=== PATIENT | male | born 1955 | race African-American/Black ===

== ENCOUNTER 2022-05-15 10:22 | Emergency (ER) | payer MEDICAID ==
[~2022-05-15] VITALS: Ht 188 cm; Wt 106.5 kg
[2022-05-15 10:57] VITALS: BP 92/57
[2022-05-15 12:06] LABS: Basophils # (auto) 0 10 ^3/uL (0-0.2); Basophils % (auto) 0.3 % (0.0-2.0); Eosinophils # (auto) 0.1 10 ^3/uL (0-0.8); Eosinophils % (auto) 1.1 % (0.0-7.0); Hematocrit 44.8 % (41.0-53.0); Hemoglobin 14.8 g/dL (13.5-17.5); Lymphocytes # (auto) 1.4 10 ^3/uL (0.4-5.4); Lymphocytes % (auto) 27.9 % (10.0-50.0); Mean Corpuscular Hemoglobin 32.3 pg (28.0-32.0); Mean Corpuscular Hgb Conc. 33.1 g/dL (32.0-36.0); Mean Corpuscular Volume 97.5 fL (80.0-100.0); Monocytes # (auto) 0.5 10 ^3/uL (0-1.3); Monocytes % (auto) 9.2 % (0.0-12.0); Neutrophils # (auto) 3.1 10 ^3/uL (1.6-8.6); Neutrophils % (auto) 61.5 % (37.0-80.0); Nucleated Red Blood Cells % 0.1 %; Red Cell Distribution Width 14.1 % (11.8-14.3); White Blood Cell 5.1 10^3/uL (4.4-10.8)
[2022-05-15 12:19] LABS: Albumin 3.4 g/dL (3.4-5.0); Calcium 8.6 mg/dL (8.5-10.1); Potassium 3.5 mmol/L (3.5-5.1)
[2022-05-15 12:22] LABS: Bilirubin, Total 1.1 mg/dL (0.2-1.0); Total Protein 6.8 g/dL (6.4-8.2)
[2022-05-15] MEDS ORDERED: METH4PAK PO (13:51)
[2022-05-15] MEDS ORDERED: AZIT1POW PO (13:51)
== END 2022-05-15 15:21 | disposition home or self-care (01) ==
LOC: ER 10:26
DX: J20.9 Acute bronchitis, unspecified (principal); E78.5 Hyperlipidemia, unspecified; Z20.822 Contact with and (suspected) exposure to COVID-19
CPT/HCPCS: 36415; 71045; 80053; 83880; 84484; 85025; 93005

== ENCOUNTER → 2024-07-15 | Outpatient (CLI) | payer MEDICAID ==
[~2024-07-15] MED LIST: AZIT1POW PO; METH4PAK PO
[2024-07-15 10:08] LABS: Basophils # (auto) 0 10 ^3/uL (0-0.2); Eosinophils # (auto) 0.1 10 ^3/uL (0-0.8); Hemoglobin 15.2 g/dL (13.5-17.5); Mean Corpuscular Volume 99.4 fL (80.0-100.0); Monocytes # (auto) 0.4 10 ^3/uL (0-1.3); White Blood Cell 5.1 10^3/uL (4.4-10.8)
[2024-07-15 10:10] LABS: Basophils % (auto) 0.7 % (0.0-2.0); Eosinophils % (auto) 2.6 % (0.0-7.0); Lymphocytes # (auto) 1.6 10 ^3/uL (0.4-5.4); Lymphocytes % (auto) 30.8 % (10.0-50.0); Mean Corpuscular Hemoglobin 34.3 pg (28.0-32.0); Mean Corpuscular Hgb Conc. 34.5 g/dL (32.0-36.0); Monocytes % (auto) 8.3 % (0.0-12.0); Neutrophils % (auto) 57.6 % (37.0-80.0); Nucleated Red Blood Cells % 0.1 %; Platelet Count (auto) 145 10^3/uL (140-450); Red Blood Cells 4.43 10^6/uL (4.5-5.90); Red Cell Distribution Width 14.8 % (11.8-14.3)
[2024-07-15 10:59] LABS: Alanine Aminotransferase 13 U/L (7-40); Alkaline Phosphatase 58 U/L (46-116); Anion Gap 4 (5-15); Aspartate Aminotransferase 11 U/L (13-40); BUN/Creatinine Ratio 14.1 (10.0-20.0); Blood Urea Nitrogen 11 mg/dL (9-23); Calcium 9.5 mg/dL (8.7-10.4); Carbon Dioxide 27 mmol/L (20-30); Chloride 111 mmol/L (98-107); Cholesterol 146 mg/dL (< 200); Glucose 86 mg/dL (74-106); HDL Cholesterol 50 mg/dL (40-59); LDL Cholesterol 80 mg/dL (< 100); Potassium 4.4 mmol/L (3.5-5.1); Sodium 142 mmol/L (136-145); Triglycerides 71 mg/dL (< 150)
[2024-07-15 11:00] LABS: Total Protein 6.2 g/dL (5.7-8.2)
== END | disposition home or self-care (01) ==
LOC: LAB 09:44
PROVIDERS: ATTEND Nurse Practitioner Family
DX: I27.20 Pulmonary hypertension, unspecified (principal); N40.0 Benign prostatic hyperplasia without lower urinary tract symptoms; R73.9 Hyperglycemia, unspecified
CPT/HCPCS: 36415; 80053; 80061; 82043; 83036; 84153; 84443; 85025

== ENCOUNTER → 2024-09-05 | Outpatient (CLI) | payer MEDICAID ==
[2024-09-05 10:55] LABS: Basophils # (auto) 0 10 ^3/uL (0-0.2); Basophils % (auto) 0.5 % (0.0-2.0); Eosinophils # (auto) 0.1 10 ^3/uL (0-0.8); Hematocrit 46.2 % (41.0-53.0); Monocytes # (auto) 0.4 10 ^3/uL (0-1.3); Red Blood Cells 4.62 10^6/uL (4.5-5.90)
[2024-09-05 10:57] LABS: Eosinophils % (auto) 1.8 % (0.0-7.0); Hemoglobin 15.8 g/dL (13.5-17.5); Lymphocytes # (auto) 1.4 10 ^3/uL (0.4-5.4); Lymphocytes % (auto) 28.8 % (10.0-50.0); Mean Corpuscular Hemoglobin 34.3 pg (28.0-32.0); Mean Corpuscular Hgb Conc. 34.3 g/dL (32.0-36.0); Mean Corpuscular Volume 99.9 fL (80.0-100.0); Monocytes % (auto) 8.4 % (0.0-12.0); Neutrophils % (auto) 60.5 % (37.0-80.0); Nucleated Red Blood Cells % 0.1 %; Platelet Count (auto) 143 10^3/uL (140-450); Red Cell Distribution Width 14.3 % (11.8-14.3)
[2024-09-05 11:21] LABS: Albumin 4.2 g/dL (3.2-4.8); Bilirubin, Direct 0.3 mg/dL (<0.3); Total Protein 6.8 g/dL (5.7-8.2)
[2024-09-06 08:06] LABS: Rheumatoid Arthritis Factor <10.0 IU/mL (<14.0)
[2024-09-06 10:07] LABS: Anti-Nuclear Antibody Direct Negative (Negative)
== END | disposition home or self-care (01) ==
LOC: LAB 10:22
PROVIDERS: ATTEND Internal Medicine
DX: I27.20 Pulmonary hypertension, unspecified (principal); R73.03 Prediabetes; R55 Syncope and collapse
CPT/HCPCS: 36415; 80061; 80076; 83036; 84439; 84443; 85025; 86038; 86431; 86703

== ENCOUNTER 2024-10-19 08:33 | Emergency (ER) | payer MEDICAID ==
[~2024-10-19] VITALS: Ht 188 cm; Wt 103.0 kg
--- NOTE | 2024-10-19 09:14 | ED.PDOC ---
General HPI Comments 69 Y M with PMHX PH and HLD, presents to the ED with CC of blood in urine. Patient states, that he has been experiencing intermittent hematuria x2days with associated symptoms of back pain. Patient relays, that he currently takes oxybutynin for enlarged prostate and denies any painful urination. Patient smokes tobacco, drinks occasionally, and smokes marijuana. Patient denies fever, cough, congestion, abdominal pain, or N/V/D. Chief Complaint: Urinary Time Seen by MD: 08:55 Reviewed notes: Nurses Notes, Medications Allergies: Coded Allergies: NO KNOWN ALLERGIES (Unverified , 05/15/22) Home Meds Active Scripts Methylprednisolone (Medrol Dosepak) 4 Mg Steven, 4 MG PO UD, #21 TAB UAD Prov:MARU GUERRERO MD 05/15/22 Azithromycin (Zithromax) 1 Gm Pow, 1 PACK PO ONCE, #1 PACK Prov:MARU GUERRERO MD 05/15/22 Information Source: Patient, Relative, Significant Other Mode of Arrival: Ambulatory Severity: Mild Timing: Days Duration: Since onset Prehospital treatment: None Symptoms: Hematuria History of: None Location: None Penile discharge: None Modifying factors: None associated signs and symptoms: None Past Medical History PAST MEDICAL HISTORY: High Lipids Family History Family History: Family hx of DM, Family hx of Cancer, Family hx of HTN Social History Smoker: Non-Smoker Alcohol: Denies ETOH Use Drugs: Denies Drug Use Lives In: Home Constitutional: denies: chills, diaphoresis, fatigue, fever, malaise, sweats, weakness, others EENTM: denies: blurred vision, double vision, ear bleeding, ear discharge, ear drainage, ear pain, ear ringing, eye pain, eye redness, hearing loss, mouth pain, mouth swelling, nasal discharge, nose bleeding, nose congestion, nose pain, photophobia, tearing, throat pain, throat swelling, voice changes, others Respiratory: denies: cough, hemoptysis, orthopnea, SOB at rest, shortness of breath, SOB with excertion, stridor, wheezing, others Cardiovascular: denies: chest pain, dizzy spells, diaphoresis, Dyspnea on exertion, edema, irregular heart beat, left arm pain, lightheadedness, palpitations, PND, syncope, others Gastrointestinal: denies: abdomen distended, abdominal pain, blood streaked bowels, constipated, diarrhea, dysphagia, difficulty swallowing, hematemesis, melena, nausea, poor appetite, poor fluid intake, rectal bleeding, rectal pain, vomiting, others Genitourinary: reports: hematuria; denies: burning, dysuria, flank pain, frequency, incontinence, penile discharge, penile sore, pain, testicle pain, testicle swelling, urgency, others Neurological: denies: dizziness, fainting, headache, left sided numbness, left sided weakness, numbness, paresthesia, pre-existing deficit, right sided numbness, right sided weakness, seizure, speech problems, tingling, tremors, weakness, others Musculoskeletal: reports: back pain; denies: gout, joint pain, joint swelling, muscle pain, muscle stiffness, neck pain, others Integumetry: denies: bruises, change in color, change in hair/nails, dryness, laceration, lesions, lumps, rash, wounds, others Allergic/Immunocompromised: denies: Difficulty Healing, Frequent Infections, Hives, Itching, others Hematologic/Lymphatic: reports: blood clots; denies: anemia, easy bleeding, ea sy bruising, swollen glands, others Endocrine: denies: excessive hunger, excessive sweating, excessive thirst, excessive urination, flushing, intolerance to cold, intolerance to heat, unexplained weight gain, unexplained weight loss, others Psychiatric: denies: anxiety, bipolar disorder, depression, hopeless, panic disorder, schizophrenia, sleepless, suicidal, others All Other Systems: Reviewed and Negative Physical Exam General Appearance: Moderate Distress, Normal HEENT: Normal ENT Inspection, Pharynx Normal, TMs Normal Neck: Full Range of Motion, Non-Tender, Normal, Normal Inspection Respiratory: Chest Non-Tender, Lungs Clear, No Accessory Muscle Use, No Respiratory Distress, Normal Breath Sounds Cardiovascular: No Edema, No JVD, No Murmur, No Gallop, Normal Peripheral Pulses, Regular Rate/Rhythm Breast Exam: Deferred Gastrointestinal: No Organomegaly, Non Tender, No Pulsatile Mass, Normal Bowel Sounds, Soft Genitalia: Deferred Pelvic: Deferred Rectal: Deferred Extremities: No calf tenderness, Normal capillary refill, Normal inspection, Normal range of motion, Non-tender, No pedal edema Musculoskeletal : Apperance: Normal Neurologic: Alert, spar cap beveler II-XII nml as Tested, No Motor Deficits, Normal Affect, Normal Mood, No Sensory Deficits Cerebellar Function: Normal Reflexes: Normal Skin: Dry, Normal Color, Warm Peripheral Pulses: 3+ Radial (R), 3+ Radial (L) Lymphatic: No Adenopathy Was a procedure done? Was a procedure done?: No Differential Diagnosis Kidney stone (Female): Musculoskeletal pain, Urinary obstruction, Urolithiasis Kidney stone (Male): Urinary obstruction, Urolithiasis, Urinary tract infection Penile/Scrotal: STD, UTI X-Ray, Labs, Meds, VS Vital Signs Date Time Temp Pulse Resp B/P (MAP) Pulse Ox O2 Delivery O2 Flow Rate FiO2 10/19/24 11:36 97.8 64 16 102/63 (76) 95 97.8 10/19/24 09:02 100.0 81 20 99/62 (74) 95 100.0 10/19/24 09:02 81 20 95 Room Air 10/19/24 08:48 100.0 81 20 99/62 (74) 95 Lab Test 10/19/24 09:24 10/19/24 08:40 Range/Units White Blood Count 6.1 4.4-10.8 10^3/uL Red Blood Count 4.77 4.5-5.90 10^6/uL Hemoglobin 15.9 13.5-17.5 g/dL Hematocrit 47.5 41.0-53.0 % Mean Corpuscular Volume 99.4 80.0-100.0 fL Mean Corpuscular Hemoglobin 33.4 H 28.0-32.0 pg Mean Corpuscular Hemoglobin Concent 33.6 32.0-36.0 g/dL Red Cell Distribution Width 14.3 11.8-14.3 % Platelet Count 137 L 140-450 10^3/uL Mean Platelet Volume 9.5 6.9-10.8 fL Neutrophils (%) (Auto) 66.2 37.0-80.0 % Lymphocytes (%) (Auto) 24.6 10.0-50.0 % Monocytes (%) (Auto) 7.0 0.0-12.0 % Eosinophils (%) (Auto) 1.4 0.0-7.0 % Basophils (%) (Auto) 0.8 0.0-2.0 % Neutrophils # (Auto) 4.1 1.6-8.6 10 ^3/uL Lymphocytes # (Auto) 1.5 0.4-5.4 10 ^3/uL Monocytes # (Auto) 0.4 0-1.3 10 ^3/uL Eosinophils # (Auto) 0.1 0-0.8 10 ^3/uL Basophils # (Auto) 0 0-0.2 10 ^3/uL Nucleated Red Blood Cells 0.1 % Sodium Level 139 136-145 mmol/L Potassium Level 4.2 3.5-5.1 mmol/L Chloride Level 110 H 98-107 mmol/L Carbon Dioxide Level 26 20-31 mmol/L Anion Gap 3 L 5-15 Blood Urea Nitrogen 15 9-23 mg/dL Creatinine 0.92 0.700-1.30 mg/dL Glomerular Filtration Rate Calc 91 >90 mL/min BUN/Creatinine Ratio 16.3 10.0-20.0 Serum Glucose 105 74-106 mg/dL Calcium Level 9.5 8.7-10.4 mg/dL Urine Color Yellow Yellow Urine Clarity Clear Clear Urine pH 6.0 5.0-9.0 Urine Specific [place] 1.021 1.001-1.035 Urine Protein Negative Negative Urine Ketones Negative Negative Urine Blood Negative Negative /uL Urine Nitrite Negative Negative Urine Bilirubin Negative Negative Urine Urobilinogen Normal Negative mg/dL Urine Leukocyte Esterase Trace Negative /uL Urine RBC 2 0 - 3 /hpf Urine WBC 2 0 - 3 /hpf Urine Squamous Epithelial Cells Few <5 /hpf Urine Bacteria None seen None Seen /hpf Urine Hyaline Casts Few 0 - 2 /lpf Urine Mucus Few None Seen Urine Glucose Normal Normal mg/dL Patient alert. Complaining of blood in urine. Vitals stable. Answering questions. UA shows UTI. BC within limits. Hemoglobin within normal limits. Was given prescription of Bactrim. No leg swelling. No chest pain. Does have chronic back pain. Reviewed his history. Explained to the patient. Was told to follow up with his primary care physician. Was told to come back if there is any problem. Time of 1ST Reevaluation: 08:25 Reevaluation 1ST: Unchanged Time of 2ND Reevaluation: 12:17 Reevaluation 2ND: Improved Patient Education/Counseling: Diagnosis, Treatment Family Education/Counseling: Diagnosis, Treatment Additional Information THE FOLLOWING TEST WERE ORDERED, AND RESULTS WERE REVIEWED BY ME: BMP, UA, CBC ADDITIONAL INFORMATION WAS GATHERED FROM INTERVIEWING THE FOLLOWING INDEPENDENT HISTORIANS: I DISCUSSED TREATMENT AND RESULTS WITH MEDICAL PERSONNEL AND: PATIENT Departure 1 Departure Time of Disposition: 12:19 Impression: Primary Impression: UTI (urinary tract infection) Qualified Codes: N30.00 - Acute cystitis without hematuria Additional Impression: Chronic back pain Qualified Codes: M54.9 - Dorsalgia, unspecified; G89.29 - Other chronic pain Disposition: ADMITTED INPATIENT Admit to: Med Surg Condition: Guarded e-Prescriptions Ibuprofen Micronized (MOTRIN TABLET) 600 Mg Tb 600 MG PO TID PRN for 3 Days, #9 TAB *Black box warning-NSAIDS can increase risk of NH & hypertension, GI irritation, ulceration, bleed, perferation. Do not use post cardiac surgery. Use short duration/lowest effective dose. Prov: FALGUNI GARCIA MD 10/19/24 Sulfamethoxazole W/Trimethopri (Bactrim Ds Tablet) 1 Tab Tb 1 TAB PO BID for 7 Days, #14 TAB Prov: FALGUNI GARCIA MD 10/19/24 Discharged With: Self Critical Care Note Critical Care Time?: No Stability Stability form required: No Heart Score Heart Score: Heart Score Response (Comments) Value History N/A 0 EKG N/A 0 Age N/A 0 Risk Factors N/A 0 Troponin N/A 0 Total 0 I personally scribed for FALGUNI GARCIA MD ([email or web address]) on 10/19/24 at 09:14. Electronically submitted by Caridad Catalan ([email or web address]). I personally scribed for FALGUNI GARCIA MD ([email or web address]) on 10/19/24 at 12:08. Electronically submitted by Caridad Catalan ([facility]). I personally scribed for FALGUNI GARCIA MD ([email or web address]) on 10/19/24 at 12:10. Electronically submitted by Caridad Catalan ([facility]). FALGUNI GARCIA MD Oct 19, 2024 09:14
[2024-10-19 09:41] LABS: Urine Bacteria None Seen /hpf (None Seen)
[2024-10-19 09:55] LABS: Potassium 4.2 mmol/L (3.5-5.1); Sodium 139 mmol/L (136-145)
[2024-10-19 09:56] LABS: Anion Gap 3 (5-15); Calcium 9.5 mg/dL (8.7-10.4); Carbon Dioxide 26 mmol/L (20-31)
[2024-10-19 10:01] LABS: BUN/Creatinine Ratio 16.3 (10.0-20.0); Basophils # (auto) 0 10 ^3/uL (0-0.2); Basophils % (auto) 0.8 % (0.0-2.0); Blood Urea Nitrogen 15 mg/dL (9-23); Eosinophils # (auto) 0.1 10 ^3/uL (0-0.8); Eosinophils % (auto) 1.4 % (0.0-7.0); Glucose 105 mg/dL (74-106); Hematocrit 47.5 % (41.0-53.0); Hemoglobin 15.9 g/dL (13.5-17.5); Lymphocytes # (auto) 1.5 10 ^3/uL (0.4-5.4); Lymphocytes % (auto) 24.6 % (10.0-50.0); Mean Corpuscular Hemoglobin 33.4 pg (28.0-32.0); Mean Corpuscular Hgb Conc. 33.6 g/dL (32.0-36.0); Mean Corpuscular Volume 99.4 fL (80.0-100.0); Monocytes # (auto) 0.4 10 ^3/uL (0-1.3); Neutrophils # (auto) 4.1 10 ^3/uL (1.6-8.6); Neutrophils % (auto) 66.2 % (37.0-80.0); Nucleated Red Blood Cells % 0.1 %; Platelet Count (auto) 137 10^3/uL (140-450); Red Blood Cells 4.77 10^6/uL (4.5-5.90); Red Cell Distribution Width 14.3 % (11.8-14.3); White Blood Cell 6.1 10^3/uL (4.4-10.8)
[2024-10-19 10:05] LABS: Chloride 110 mmol/L (98-107)
[2024-10-19 10:26] LABS: Urine Blood Negative /uL (Negative); Urine Clarity Clear (Clear); Urine Color Yellow (Yellow); Urine Hyaline Cast FEW /lpf (0 - 2); Urine Mucus FEW (None Seen); Urine Protein, UAD Negative (Negative); Urine Specific Gravity 1.021 (1.001-1.035); Urine Urobilinogen Normal (Negative); Urine WBC 2 /hpf (0 - 3)
[2024-10-19 11:36] VITALS: BP 102/63; PULSE 64; RESP 16; TEMP 97.8; O2SAT 95
[2024-10-19] MEDS ORDERED: IBU600T PO (12:20)
[2024-10-19] MEDS ORDERED: BACDST PO (12:20)
== END 2024-10-19 12:25 | disposition admitted as inpatient to this hospital (09) ==
LOC: ER 08:33
DX: N39.0 Urinary tract infection, site not specified (principal); G89.29 Other chronic pain; M54.9 Dorsalgia, unspecified; E78.5 Hyperlipidemia, unspecified; F17.200 Nicotine dependence, unspecified, uncomplicated; Z79.899 Other long term (current) drug therapy
CPT/HCPCS: 36415; 80048; 81001; 85025

== ENCOUNTER → 2024-11-04 | Outpatient (CLI) | payer MEDICAID ==
[~2024-11-04] VITALS: Ht 188 cm; Wt 84.8 kg
[~2024-11-04] MED LIST changes: +BACDST PO; +IBU600T PO; +REGADENOSON 0.4 MG/5 ML SYRG IV ONE
[2024-11-04] MEDS: REGADENOSON 0.4 MG/5 ML SYRG IV ONE (09:45)
--- NOTE | 2024-11-04 11:37 | DVHSR ---
APPROVED REPORT Exam: Nuclear Stress Test BMI: 0 Stress Test Details HR Max Heart Rate (APMHR): 153.140785 bpm Target HR (85% APMHR): 130.319867 bpm BP ECG Stress ECG Conclusion Review of the myocardial perfusion images during stress demonstrated a large area of mild intensity r adiotracer uptake in the inferior inferolateral suarez. The defect appears to be more intense during rest. Otherwise, there is homogeneous radiotracer uptake throughout the rest of the left ventricular myocardium. Left ventricular volumes are normal. Ejection fraction is normal and is estimated at 5 7%. No significant transient ischemic dilatation. There is no gated images available to review for wall motion. Impressions: 1. Large defect in the inferior wall inferolateral suarez which could her present attenuation artifact versus prior infarction. 3. Normal left ventricular systolic function. NM EXAM: Myocardial Perfusion REST/STRESS Imaging Protocol: Rest Tc-99m/Stress Tc-99m 1 day Resting Data Rest SPECT myocardial perfusion imaging was performed in supine position 60 minutes following the int ravenous injection of 11.3 mCi of Tc-99m Sestamibi. Time of rest injection: 0840 Time of rest imagin Administration Route: IV Administration Site: Right Arm Pharmacologic Stress Pharmacologic stress test was performed by injecting Regadenoson 0.4 mg IV push followed by the intra venous injection of 32 mCi of Tc-99m Sestamibi. Time of stress injection: 0944 Time of stress imagin Administration Route: IV Administration Site: Right Arm Gated Stress SPECT was performed 60 minutes after stress injection. The images were gated to evaluate regional wall motion and calculate left ventricular ejection fracti on. Stress only was performed in the Supine position. Nuclear Conclusion ECG Findings: equivocal Clinical Findings: negative for ischemia Nuclear Findings: negative for ischemia Exercise Capacity: not assessed Left Ventricular Function: normal Risk Study: moderate Review of the myocardial perfusion images during stress demonstrated a large area of mild intensity r adiotracer uptake in the inferior inferolateral suarez. The defect appears to be more intense during rest. Otherwise, there is homogeneous radiotracer uptake throughout the rest of the left ventricular myocardium. Left ventricular volumes are normal. Ejection fraction is normal and is estimated at 5 7%. No significant transient ischemic dilatation. There is no gated images available to review for wall motion. Impressions: 1. Large defect in the inferior wall inferolateral suarez which could her present attenuation artifact versus prior infarction. 3. Normal left ventricular systolic function.
== END | disposition home or self-care (01) ==
LOC: XYW 08:23
PROVIDERS: ATTEND Internal Medicine
DX: I27.20 Pulmonary hypertension, unspecified (principal); I10 Essential (primary) hypertension
CPT/HCPCS: 78452; 93017; A9500; J2785

== ENCOUNTER → 2024-11-12 | Outpatient (CLI) | payer MEDICAID ==
[~2024-11-12] MED LIST changes: -REGADENOSON 0.4 MG/5 ML SYRG IV ONE
--- NOTE | 2024-11-12 11:59 | DVH ---
CLINICAL INFORMATION: 69 years old, Male; hypertension TECHNIQUE: 10 mCi of Xenon-133 gas was used for the ventilation portion of the exam. Posterior venti lation imaging was obtained. 5.7 mCi of technetium 99m MAA was used for the perfusion portion of the exam. Imaging was obtained in multiple planes of projection. COMPARISON: None FINDINGS: No definite segmental perfusion defect. There are ill-defined small areas of mildly dimini shed perfusion in a nonsegmental distribution. Ventilation imaging shows no defects. There is normal washout. IMPRESSION: Low probability (less than 20%) of pulmonary embolism.
== END | disposition home or self-care (01) ==
LOC: XYW 07:11
PROVIDERS: ATTEND Internal Medicine
DX: I10 Essential (primary) hypertension (principal); I27.20 Pulmonary hypertension, unspecified; E78.5 Hyperlipidemia, unspecified; J44.9 Chronic obstructive pulmonary disease, unspecified; F17.200 Nicotine dependence, unspecified, uncomplicated
CPT/HCPCS: 78582; A9540; A9558

== ENCOUNTER 2025-04-11 08:19 | Outpatient (CLI) | payer MEDICAID ==
[2025-04-11 08:35] LABS: Basophils # (auto) 0 10 ^3/uL (0-0.2); Basophils % (auto) 0.3 % (0.0-2.0); Eosinophils # (auto) 0.1 10 ^3/uL (0-0.8); Eosinophils % (auto) 1.2 % (0.0-7.0); Hematocrit 47.1 % (41.0-53.0); Hemoglobin 16.1 g/dL (13.5-17.5); Lymphocytes # (auto) 1.3 10 ^3/uL (0.4-5.4); Lymphocytes % (auto) 20.2 % (10.0-50.0); Mean Corpuscular Hemoglobin 33.8 pg (28.0-32.0); Mean Corpuscular Hgb Conc. 34.3 g/dL (32.0-36.0); Mean Corpuscular Volume 98.8 fL (80.0-100.0); Monocytes # (auto) 0.5 10 ^3/uL (0-1.3); Monocytes % (auto) 7.8 % (0.0-12.0); Neutrophils # (auto) 4.6 10 ^3/uL (1.6-8.6); Neutrophils % (auto) 70.5 % (37.0-80.0); Nucleated Red Blood Cells % 0.1 %; Platelet Count (auto) 126 10^3/uL (140-450); Red Blood Cells 4.77 10^6/uL (4.5-5.90); Red Cell Distribution Width 14.3 % (11.8-14.3); White Blood Cell 6.5 10^3/uL (4.4-10.8)
[2025-04-11 09:19] LABS: Alanine Aminotransferase 15 U/L (7-40); Alkaline Phosphatase 59 U/L (46-116); Anion Gap 8 (5-15); BUN/Creatinine Ratio 16.7 (10.0-20.0); Blood Urea Nitrogen 13 mg/dL (9-23); Calcium 9.7 mg/dL (8.7-10.4); Carbon Dioxide 24 mmol/L (20-31); Chloride 109 mmol/L (98-107); Glucose 87 mg/dL (74-106); LDL Cholesterol 97 mg/dL (< 100); Potassium 3.9 mmol/L (3.5-5.1); Sodium 141 mmol/L (136-145); Total Protein 6.7 g/dL (5.7-8.2); Triglycerides 69 mg/dL (< 150)
[2025-04-11 09:20] LABS: Albumin 4.3 g/dL (3.2-4.8); Aspartate Aminotransferase 15 U/L (<34); Bilirubin, Total 1.2 mg/dL (0.2-1.0); Cholesterol 160 mg/dL (< 200); HDL Cholesterol 54 mg/dL (40-59)
== END 2025-04-11 17:00 | disposition home or self-care (01) ==
LOC: LAB 08:19
PROVIDERS: ATTEND Nurse Practitioner Family
DX: I10 Essential (primary) hypertension (principal); R35.1 Nocturia; Z00.01 Encounter for general adult medical examination with abnormal findings
CPT/HCPCS: 36415; 80053; 80061; 84443; 85025

== ENCOUNTER → 2025-06-20 | Outpatient (CLI) | payer MEDICAID | END | disposition home or self-care (01) | LOC: LAB 12:31 | PROVIDERS: ATTEND Family Medicine | DX: Z01.812 Encounter for preprocedural laboratory examination (principal); D17.79 Benign lipomatous neoplasm of other sites ==

== ENCOUNTER → 2025-07-04 | Outpatient (CLI) | payer MEDICAID | END | disposition home or self-care (01) | LOC: LAB 12:29 | PROVIDERS: ATTEND Family Medicine | DX: Z01.812 Encounter for preprocedural laboratory examination (principal); L72.3 Sebaceous cyst ==